=== PATIENT | male | born 1960 | race Hispanic/Latino ===

== ENCOUNTER 2017-01-04 08:54 | Outpatient (CLI) | payer OTHER ==
--- NOTE | 2017-01-05 08:45 | Magnetic Resonance Report ---
MR UPPER EXTREMITY NON-JOINT RIGHT WITHOUT CONTRAST HISTORY: Right hand pain, evaluate for fracture. TECHNIQUE: Multisequence, multiplanar MRI without contrast. COMPARISON: None at this facility. FINDINGS: There is a marker placed on the dorsum of the hand between the second and third metacarpal heads. A bony erosion is identified along the medial surface of the distal second metatarsal head. There is minimal surrounding edema. This bony erosion measures approximately 5 mm in diameter and appears to contain an "overhanging edge". This finding is commonly associated with gout. Please correlate with the patient's clinical presentation. The remaining bony structures and joint spaces are unremarkable. There is no evidence for fracture, additional bony erosion, or bone lesion. The musculotendinous structures are intact and normal signal. The carpal tunnel is partially visualized and has an unremarkable appearance. IMPRESSION: No evidence for fracture. Bony erosion involving the second metacarpal head which is suggestive of gout. Please correlate with the patient's clinical presentation. Other arthritides are not excluded.
== END 2017-01-04 08:55 | disposition home or self-care (01) ==
LOC: MRI 08:54
PROVIDERS: ATTEND General Practice
DX: S69.91XD Unspecified injury of right wrist, hand and finger(s), subsequent encounter (principal); X58.XXXD Exposure to other specified factors, subsequent encounter